=== PATIENT | female | born 1980 | race African-American/Black ===

== ENCOUNTER 2016-10-23 22:23 | Emergency (ER) | payer MEDICAID, OTHER ==
[~2016-10-23] VITALS: Ht 175.3 cm; Wt 77.1 kg
[~2016-10-23 22:23] MED LIST: ACETAMINOPHEN-1 EAC1 ORAL; AZITHROMYCIN250 MG ORAL; CELEXA20 MG PO; CLARITHROMYCIN500 MG PO; COLACE100 MG ORAL; CYCLOBENZAPRINE10 MG ORAL; FLAGYL500 MG ORAL; GABAPENTIN100 MG ORAL; IMODIUM2 MG ORAL; MILK OF MA400 MG/51 ORAL; MIRALAX17 G2 ORAL; OMEPRAZOLE40 M1 ORAL; PRILOSEC20 MG ORAL; RANITIDINE HCL150 MG ORAL; TRAMADOL HCL50 MG ORAL; TYLENOL EXTRA500 MG ORAL; ZOFRAN ODT4 MG ORAL; ZOFRAN4 M1 ORAL; ZOFRAN4 MG ORAL
[2016-10-23 23:00] VITALS: BP 101/64
[2016-10-24] MEDS ORDERED: IBUPROFEN600 MG ORAL (00:27)
[2016-10-24] MEDS ORDERED: TRAMADOL HCL50 MG ORAL (00:27)
[2016-10-24] MEDS ORDERED: ROBAXIN500 MG PO (00:27)
[2016-10-24 01:00] VITALS: BP 101/64
[2016-10-24 01:30] VITALS: BP 109/66
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
--- NOTE | 2016-10-24 11:40 | Diagnostic Imaging Report ---
Indication: Neck Pain Findings: 3 views of the cervical spine were obtained. There is narrowing of the C6-7 disc with mild endplate spurring. Alignment is normal. There is no soft tissue swelling. No fracture seen. Impression: No acute findings
--- NOTE | 2016-10-24 15:47 | Diagnostic Imaging Report ---
Indication: Back pain Comparison: None Findings: 3 views of the lumbar spine were obtained. No acute fracture or malalignment is identified. Vertebral body heights and disk spaces are well maintained. Posterior elements are unremarkable. Impression: No acute findings.
== END 2016-10-24 01:30 | disposition home or self-care (01) ==
LOC: EMR 23:25
DX: S13.4XXA Sprain of ligaments of cervical spine, initial encounter (principal); S39.012A Strain of muscle, fascia and tendon of lower back, initial encounter; V43.52XA Car driver injured in collision with other type car in traffic accident, initial encounter; Y92.411 Interstate highway as the place of occurrence of the external cause; Z88.0 Allergy status to penicillin; Z88.6 Allergy status to analgesic agent
CPT/HCPCS: 72020; 72050; 99284

== ENCOUNTER 2017-12-17 12:09 | Emergency (ER) | payer MEDICAID ==
[~2017-12-17] VITALS: Ht 170.2 cm; Wt 88.5 kg
[~2017-12-17 12:09] MED LIST changes: +IBUPROFEN600 MG ORAL; +ROBAXIN500 MG PO
[2017-12-17 12:24] VITALS: BP 126/87
[2017-12-17 13:12] LABS: APPEARANCE,URINE SLIGHTLY CLOUDY; BILIRUBIN, URINE NEGATIVE (NEGATIVE); GLUCOSE, URINE (UA) NEGATIVE (NEGATIVE); KETONES,URINE 1+ (NEGATIVE); LEUKOCYTE ESTERASE ,URINE NEGATIVE (NEGATIVE); NITRITE,URINE NEGATIVE (NEGATIVE); PH,URINE 6.5 (4.5-8.0); PROTEIN,URINE NEGATIVE (NEGATIVE); UROBILINOGEN,URINE NORMAL MG/DL (0.0-1.0)
[2017-12-17 13:13] LABS: COLOR,URINE YELLOW
--- NOTE | 2017-12-17 13:14 | Diagnostic Imaging Report ---
Indication: Shortness of breath Technique: One view of the chest Comparison: 12/27/2012 Findings: Lungs and pleural spaces are clear. Heart size is normal. No significant interim change Impression: No acute process
[2017-12-17] MEDS ORDERED: NORCO 5-325 TA1 EACH ORAL (13:15)
[2017-12-17] MEDS ORDERED: SOMA350 MG PO (13:15)
[2017-12-17 13:16] LABS: BASOPHILS % (AUTO) 1.7 % (0.0-2.0); EOSINOPHILS % (AUTO) 2.9 % (0.0-3.0); HEMATOCRIT 37.8 % (37.0-47.0); LYMPHOCYTES % (AUTO) 40.1 % (20.0-45.0); MEAN CORPUSCULAR VOLUME 83 FL (80-99); MONOCYTES % (AUTO) 7.8 % (1.0-10.0); NEUTROPHILS % (AUTO) 47.4 % (45.0-75.0); PLATELET COUNT 263 K/UL (150-450); RED BLOOD COUNT 4.52 M/UL (4.20-5.40); RED CELL DISTRIBUTION WIDTH 13.4 % (11.6-14.8)
[2017-12-17 13:27] LABS: ANION GAP 7 mmol/L (5-15); BLOOD UREA NITROGEN 10 mg/dL (7-18); CALCIUM 9.4 MG/DL (8.5-10.1); CARBON DIOXIDE 27 MMOL/L (21-32); CHLORIDE 106 MMOL/L (98-107); CREATININE 0.9 MG/DL (0.55-1.30); POTASSIUM 4.2 MMOL/L (3.5-5.1); SODIUM 140 MMOL/L (136-145)
[2017-12-17 13:42] LABS: ALANINE AMINOTRANSFERASE 26 U/L (12-78); ALBUMIN 3.6 G/DL (3.4-5.0); ALBUMIN/GLOBULIN RATIO 0.9 (1.0-2.7); ALKALINE PHOSPHATASE 67 U/L (46-116); ASPARTATE AMINO TRANSFERASE 14 U/L (15-37); BILIRUBIN,TOTAL 0.3 MG/DL (0.2-1.0); CKMB < 0.5 NG/ML (0.0-3.6); CREATINE KINASE 61 U/L (26-308)
[2017-12-17 14:22] VITALS: BP 115/70
[2017-12-17 14:23] VITALS: BP 115/70
--- NOTE | 2017-12-17 15:08 | Emergency Room Report ---
History of Present Illness General Chief Complaint: General Complaint Source: Patient Present Illness HPI 37-year-old female presents ED for evaluation. States that for the last few days she's been experiencing dizziness and tingling sensation in her left arm. Denies any weakness to the arm. Denies any chest pain or shortness of breath. States that she has history of slipped disc in her neck. Denies any headache. Denies any nausea or vomiting. No other aggravating relieving factors. Denies any other associated symptoms Allergies: Coded Allergies: PENICILLINS (Verified Allergy, Mild, cannot swallow, 12/26/12) ASPIRIN (Unverified Allergy, Unknown, 04/23/14) Patient History Past Medical History: ulcer, migraines Past Surgical History: none Pertinent Family History: none Social History: Denies: smoking, alcohol use, drug use Now: No Immunizations: UTD Reviewed Nursing Documentation: PMH: Agreed; PSxH: Agreed Nursing Documentation-PMH Hx Gastrointestinal Problems: Yes - peptic ulcers over 20 in stomach per pt Review of Systems All Other Systems: negative except mentioned in HPI Physical Exam Vital Signs Date Time Temp Pulse Resp B/P (MAP) Pulse Ox O2 Delivery O2 Flow Rate FiO2 12/17/17 12:15 98.0 76 16 126/87 98 Room Air 98.1 Sp02 EP Interpretation: reviewed, normal General Appearance: no apparent distress, alert, GCS 15, non-toxic Head: normocephalic, atraumatic Eyes: bilateral eye normal inspection, bilateral eye PERRL ENT: hearing grossly normal, normal pharynx, no angioedema, normal voice Neck: full range of motion, supple/symm/no masses Respiratory: chest non-tender, lungs clear, normal breath sounds, speaking full sentences Cardiovascular #1: regular rate, rhythm, no edema Cardiovascular #2: 2+ carotid (R), 2+ carotid (L), 2+ radial (R), 2+ radial (L) , 2+ dorsalis pedis (R), 2+ dorsalis pedis (L) Gastrointestinal: normal bowel sounds, non tender, soft, non-distended, no guarding, no rebound Rectal: deferred Genitourinary: normal inspection, no CVA tenderness Musculoskeletal: back normal, gait/station normal, normal range of motion, non- tender Neurologic: alert, oriented x3, responsive, palm and back forger III-XII nml as tested, motor strength/tone normal, sensory intact, speech normal Psychiatric: judgement/insight normal, memory normal, mood/affect normal, no suicidal/homicidal ideation Reflexes: 3+ bicep (R), 3+ bicep (L), 3+ tricep (R), 3+ tricep (L), 3+ knee (R) , 3+ knee (L) Skin: normal color, no rash, warm/dry, well hydrated Lymphatic: no adenopathy Medical Decision Making Diagnostic Impression: Primary Impression: Numbness of upper extremity Additional Impression: Dizziness ER Course Hospital Course 37-year-old female presents with tingling sensation in left arm. Dizziness. Differential diagnoses include: Rib fracture, [place]/unstable angina, contusion, muscle strain Clinical course Patient placed on stretcher. After initial history and physical I ordered labs , EKG, chest x-ray. labs reviewed- all electrolytes normal, troponins negative, no leukocytosis, hemoglobin/hematocrit stable, UA negative EKG - NSR, no acute ischemic chainges interpreted by me Chest x-ray-no cardiomegaly, no rib fracture, no pneumothorax, no acute process Discussed findings with patient. Patient has no focal neurological deficits. Cranial nerves II through XII grossly intact. 5 out of 5 motor strength in the upper extremity. Given lack of cardiac risk factors I am not suspicious for stroke or ACS i do not believe CT imaging indicated at this time Given history of neck injury was slipped disc and believe symptoms are likely related to cervical radiculopathy. Safe for discharge with close outpatient follow-up. patient agrees with pain I. I feel this is a highly complex case requiring extensive working including EKG/Rhythm strip, Xray/CT/US, Blood/urine lab work, repeat exams while in ED, and administration of strong opiates/narcotics for pain control, admission to hospital or close patient follow up. Diagnosis - numbness of upper extremity, dizziness Stable and discharged to home. Instructed to followup with PMD. Return to ED if symptoms recur or worsen Labs Test 12/17/17 12:45 White Blood Count 5.0 K/UL (4.8-10.8) Red Blood Count 4.52 M/UL (4.20-5.40) Hemoglobin 12.0 G/DL (12.0-16.0) Hematocrit 37.8 % (37.0-47.0) Mean Corpuscular Volume 83 FL (80-99) Mean Corpuscular Hemoglobin 26.6 PG (27.0-31.0) Mean Corpuscular Hemoglobin Concent 31.8 G/DL (32.0-36.0) Red Cell Distribution Width 13.4 % (11.6-14.8) Platelet Count 263 K/UL (150-450) Mean Platelet Volume 7.2 FL (6.5-10.1) Neutrophils (%) (Auto) 47.4 % (45.0-75.0) Lymphocytes (%) (Auto) 40.1 % (20.0-45.0) Monocytes (%) (Auto) 7.8 % (1.0-10.0) Eosinophils (%) (Auto) 2.9 % (0.0-3.0) Basophils (%) (Auto) 1.7 % (0.0-2.0) Urine Color Yellow Urine Appearance Slightly cloudy Urine pH 6.5 (4.5-8.0) Urine Specific [place] 1.015 (1.005-1.035) Urine Protein Negative (NEGATIVE) Urine Glucose (UA) Negative (NEGATIVE) Urine Ketones 1+ (NEGATIVE) Urine Blood 1+ (NEGATIVE) Urine Nitrite Negative (NEGATIVE) Urine Bilirubin Negative (NEGATIVE) Urine Urobilinogen Normal MG/DL (0.0-1.0) Urine Leukocyte Esterase Negative (NEGATIVE) Urine RBC 2-4 /HPF (0 - 2) Urine WBC 0-2 /HPF (0 - 2) Urine Squamous Epithelial Cells Many /LPF (NONE/OCC) Urine Bacteria Few /HPF (NONE) Urine HCG, Qualitative Negative (NEGATIVE) Sodium Level 140 MMOL/L (136-145) Potassium Level 4.2 MMOL/L (3.5-5.1) Chloride Level 106 MMOL/L (98-107) Carbon Dioxide Level 27 MMOL/L (21-32) Anion Gap 7 mmol/L (5-15) Blood Urea Nitrogen 10 mg/dL (7-18) Creatinine 0.9 MG/DL (0.55-1.30) Estimat Glomerular Filtration Rate > 60 mL/min (>60) Glucose Level 87 MG/DL (74-106) Calcium Level 9.4 MG/DL (8.5-10.1) Total Bilirubin 0.3 MG/DL (0.2-1.0) Aspartate Amino Transf (AST/SGOT) 14 U/L (15-37) Alanine Aminotransferase (ALT/SGPT) 26 U/L (12-78) Alkaline Phosphatase 67 U/L (46-116) Total Creatine Kinase 61 U/L (26-308) Creatine Kinase MB < 0.5 NG/ML (0.0-3.6) Creatine Kinase MB Relative Index 0.8 Troponin I 0.017 ng/mL (0.000-0.056) Total Protein 7.4 G/DL (6.4-8.2) Albumin 3.6 G/DL (3.4-5.0) Globulin 3.8 g/dL Albumin/Globulin Ratio 0.9 (1.0-2.7) EKG Diagnostic Results Rate: normal Rhythm: NSR ST Segments: no acute changes ASA given to the pt in ED: No Rhythm Strip Diag. Results EP Interpretation: yes Rhythm: NSR, no PVC's, no ectopy Chest X-Ray Diagnostic Results Chest X-Ray Diagnostic Results : Chest X-Ray Ordered: Yes # of Views/Limited/Complete: 1 View Indication: Chest Pain EP Interpretation: Yes Interpretation: no consolidation, no effusion, no pneumothorax, no acute cardiopulmonary disease Impression: No acute disease Electronically Signed by: Electronically signed by Elias King MD Last Vital Signs Date Time Temp Pulse Resp B/P (MAP) Pulse Ox O2 Delivery O2 Flow Rate FiO2 12/17/17 14:23 98.1 73 16 115/70 98 Room Air 98.1 Status: improved Disposition: HOME, SELF-CARE Condition: Stable Patient Instructions: Cervical Radiculopathy, [id number] Additional Instructions: see your PMD as outpatient. return to ED if you develop weakness in the arm, slurred speech, chest pain. Elias King MD Dec 17, 2017 15:08
--- NOTE | 2017-12-19 15:33 | Cardiology Report ---
APPROVED REPORT EKG Measurement Heart [id number] Normal sinus rhythm Normal ECG
== END 2017-12-17 14:25 | disposition home or self-care (01) ==
LOC: EMR 12:40
DX: R20.0 Anesthesia of skin (principal); R42 Dizziness and giddiness; Z88.0 Allergy status to penicillin; Z88.6 Allergy status to analgesic agent
CPT/HCPCS: 36415; 71045; 80053; 81003; 81025; 82550; 82553; 84484; 85025; 93005; 96360; 99284

== ENCOUNTER 2018-06-04 08:41 | Emergency (ER) | payer MEDICAID ==
[~2018-06-04] VITALS: Ht 172.7 cm; Wt 81.6 kg
[~2018-06-04 08:41] MED LIST changes: +NORCO 5-325 TA1 EACH ORAL; +SOMA350 MG PO
[2018-06-04 08:49] VITALS: BP 111/84
--- NOTE | 2018-06-04 09:14 | NUR ---
ED Nurse Note: Patient presents to ER due to flu-like symtoms. Reports decreased cough, but c/o chest/nasal congestions. Reports no fever, chills or rash. Denies N/V or D. Patient able to swallow water/eat food without problem. No facial grimacing or guarding noted.
[2018-06-04] MEDS ORDERED: CLARITHROMYCIN250 MG PO (09:15)
[2018-06-04] MEDS ORDERED: PROMETHAZI6.25 MG/1 ORAL (09:15)
--- NOTE | 2018-06-04 09:20 | Emergency Room Report ---
History of Present Illness General Chief Complaint: Upper Respiratory Illness Source: Patient Present Illness HPI Patient presents with reports of nasal congestion Sinus pressure mild headache Patient reports his symptoms initiated 2 weeks ago she felt that she might be getting better however again has started with the symptoms Also reports mild cough Denies any chest pain however she did have diarrhea Denies any back or flank pain denies any neck pain or photophobia Denies any fevers or rash Allergies: Coded Allergies: PENICILLINS (Verified Allergy, Mild, cannot swallow, 12/26/12) ASPIRIN (Unverified Allergy, Unknown, 04/23/14) Patient History Past Medical History: see triage record Pertinent Family History: none Last Menstrual Period: 1 week Now: No Reviewed Nursing Documentation: PMH: Agreed; PSxH: Agreed Nursing Documentation-PMH Past Medical History: No History, Except For Hx Gastrointestinal Problems: Yes - peptic ulcers Review of Systems All Other Systems: negative except mentioned in HPI Physical Exam Vital Signs Date Time Temp Pulse Resp B/P (MAP) Pulse Ox O2 Delivery O2 Flow Rate FiO2 06/04/18 08:49 98.4 20 111/84 97 Room Air 06/04/18 08:49 74 Sp02 EP Interpretation: reviewed, normal General Appearance: well appearing, no apparent distress Head: normocephalic, atraumatic Eyes: bilateral eye PERRL, bilateral eye EOMI ENT: hearing grossly normal, TMs + canals normal, uvula midline, pharyngeal erythema, other - Increased discomfort reproducible maxillary sinus bilaterally Neck: full range of motion, supple, no meningismus, no bony tend Respiratory: lungs clear, normal breath sounds, no rhonchi, no respiratory distress, no retraction, no accessory muscle use Cardiovascular #1: normal peripheral pulses, regular rate, rhythm, no edema, no gallop, no JVD, no murmur Gastrointestinal: normal bowel sounds, non tender, soft, no mass, no organomegaly, non-distended, no guarding, no hernia, no pulsatile mass, no rebound Genitourinary: no CVA tenderness Musculoskeletal: normal inspection Neurologic: oriented x3, responsive, laminator printed circuit boards III-XII nml as tested, motor strength/ tone normal, sensory intact Psychiatric: mood/affect normal Skin: normal color, no rash, warm/dry, palpation normal Lymphatic: normal inspection, no adenopathy Medical Decision Making Diagnostic Impression: Primary Impression: sinusitis, complex ER Course Patient has symptoms of sinusitis ongoing for the past 2 weeks Has failed outpatient trial Given the duration of her symptoms will require antibiotic coverage This meets criteria for antibiotic coverage in sinusitis given the complexity Patient otherwise does not appear septic or toxic and is stable for close outpatient follow-up Last Vital Signs Date Time Temp Pulse Resp B/P (MAP) Pulse Ox O2 Delivery O2 Flow Rate FiO2 06/04/18 09:12 72 20 Room Air 06/04/18 08:49 98.4 111/84 97 Status: unchanged Disposition: HOME, SELF-CARE Condition: Stable Scripts Promethazine Hcl (PROMETHAZINE HCL*) 6.25 Mg/5 Ml Syrup 5 ML ORAL QHS for 5 Days, #120 ML 0 Refills Prov: Kodak Heart DO 06/04/18 Clarithromycin (CLARITHROMYCIN) 250 Mg Tablet 500 MG PO BID for 7 Days, TAB Prov: Kodak Heart DO 06/04/18 Patient Instructions: Sinusitis, Adult, [id number] Additional Instructions: Patient is provided with the discharge instructions notified to follow up with primary doctor in the next 2-3 days otherwise return to the er with any worsening symptoms. Please note that this report is being documented using [employer] technology. This can lead to erroneous entry secondary to incorrect interpretation by the dictating instrument. Kodak Heart DO Jun 04, 2018 09:20
[2018-06-04 09:24] VITALS: BP 111/78
--- NOTE | 2018-06-04 09:26 | NUR ---
ED Nurse Note: Patient is being discharged from medical care. D/C instructions and prescriptions given to patient. All questions were answered. Patient ambulated out with steady gait.
== END 2018-06-04 11:44 | disposition home or self-care (01) ==
LOC: EMR 09:15
DX: J32.9 Chronic sinusitis, unspecified (principal); Z88.6 Allergy status to analgesic agent; Z88.0 Allergy status to penicillin
CPT/HCPCS: 99283

== ENCOUNTER → 2019-03-11 | Emergency (ER) | payer MEDICAID ==
[~2019-03-11] VITALS: Ht 172.7 cm; Wt 77.1 kg
[~2019-03-11] MED LIST changes: +CLARITHROMYCIN250 MG PO; +PROMETHAZI6.25 MG/1 ORAL; +ZYRTEC-D TABLE1 EACH ORAL
--- NOTE | 2019-03-11 17:38 | NUR ---
ED Nurse Note: Pt ambulated to ED with c/o Sore throat. Pt is calm and cooperative, AOX4. PA on bedside.
[2019-03-11 17:40] VITALS: BP 115/80
--- NOTE | 2019-03-11 17:52 | Emergency Room Report ---
History of Present Illness General Chief Complaint: Sore Throat Source: Patient Present Illness HPI 38 YO Female presents to the ED c/o 08/[address] with swollen feeling in the back of her throat. Patient denies swelling of the lips or tongue she denies wheezing or difficulty breathing. Patient denies fevers or chills she reports intermittent swollen tender lymph nodes in the neck area x3 days. Patient reports upon swallowing she has some discomfort. Patient denies cough, headache, neck pain or stiffness. Patient denies recent travel or ill contacts. No other aggravating or relieving factors at this time. Allergies: Coded Allergies: PENICILLINS (Verified Allergy, Mild, cannot swallow, 12/26/12) ASPIRIN (Unverified Allergy, Unknown, 04/23/14) Patient History Past Medical History: see triage record Past Surgical History: none Last Menstrual Period: 02/28/19 Now: No Reviewed Nursing Documentation: PMH: Agreed; PSxH: Agreed Nursing Documentation-PMH Past Medical History: No History, Except For Hx Gastrointestinal Problems: Yes - peptic ulcers Review of Systems All Other Systems: negative except mentioned in HPI Physical Exam Vital Signs Date Time Temp Pulse Resp B/P (MAP) Pulse Ox O2 Delivery O2 Flow Rate FiO2 03/11/19 17:37 98.6 100 15 127/85 (99) 95 Room Air Sp02 EP Interpretation: reviewed, normal General Appearance: no apparent distress, alert, GCS 15, non-toxic Head: normocephalic, atraumatic Eyes: bilateral eye normal inspection, bilateral eye PERRL ENT: hearing grossly normal, normal pharynx, no angioedema, normal voice, TMs + canals normal, uvula midline, moist mucus membranes, pharyngeal erythema, other - no exudates Neck: full range of motion, no meningismus, no bony tend Respiratory: chest non-tender, lungs clear, normal breath sounds, no respiratory distress, no accessory muscle use, speaking full sentences Cardiovascular #1: regular rate, rhythm, normal capillary refill Musculoskeletal: normal range of motion, gait/station normal, non-tender Neurologic: alert, motor strength/tone normal, oriented x3, sensory intact, responsive, speech normal Psychiatric: judgement/insight normal Skin: no rash, normal color, normal inspection Lymphatic: no adenopathy Medical Decision Making PA Attestation Dr. Laguerre Is my supervising Physician whom patient management has been discussed with. Diagnostic Impression: Primary Impression: Pharyngitis Qualified Codes: J02.9 - Acute pharyngitis, unspecified Additional Impression: Post-nasal drainage ER Course 38 YO Female presents to the ED c/o 6/[address] with swollen feeling in the back of her throat. Patient denies swelling of the lips or tongue she denies wheezing or difficulty breathing. Patient denies fevers or chills she reports intermittent swollen tender lymph nodes in the neck area x3 days. Patient reports upon swallowing she has some discomfort. Patient denies cough, headache, neck pain or stiffness. Patient denies recent travel or ill contacts. No other aggravating or relieving factors at this time. Ddx considered but are not limited to: pharyngitis, strep, SALES OPERATIONS CONSULTANT, ludwigs angina, URI, epiglottitis Vital signs: are WNL, pt. is afebrile H&PE are most consistent with: PND pharyngitis pt. does not meet CENTOR criteria and this is not presumed to be strep. ORDERS: None required at this time as the diagnosis is clinical ED INTERVENTIONS: none required at this time. DISCHARGE: At this time pt. is stable for d/c to home. Will provide printed patient care instructions, and any necessary prescriptions. Care plan and follow up instructions have been discussed with the patient prior to discharge. Last Vital Signs Date Time Temp Pulse Resp B/P (MAP) Pulse Ox O2 Delivery O2 Flow Rate FiO2 03/11/19 17:37 98.6 100 15 127/85 (99) 95 Room Air Status: improved Disposition: HOME, SELF-CARE Condition: Stable Referrals: Autumn Eldridge [facility] Patient Instructions: Sore Throat Additional Instructions: Take medications as directed. Follow up with a Primary Care Provider in 3-5 days, even if your symptoms have resolved. --Please review list of primary care clinics, if you do not already have a primary care provider Return sooner to ED if new symptoms occur, or current symptoms become worse. - Please note that this Emergency Department Report was dictated using [employer] processing technician technology software, occasionally this can lead to erroneous entry secondary to interpretation by the dictation equipment. Nica Arauz Mar 11, 2019 17:52
[2019-03-11 18:14] VITALS: BP 120/82
--- NOTE | 2019-03-11 18:14 | NUR ---
ER DISCHARGE NOTE: Patient is cleared to be discharged per ERMD, pt is aox4, on room air, with stable vital signs. pt was given dc and prescription instructions, pt was able to verbalize understanding, pt id band removed. pt is able to ambulate with steady gait. pt took all belongings.
== END | disposition home or self-care (01) ==
LOC: EMR 18:02
DX: J02.9 Acute pharyngitis, unspecified (principal); R09.82 Postnasal drip; Z87.11 Personal history of peptic ulcer disease; Z88.0 Allergy status to penicillin; Z88.6 Allergy status to analgesic agent
CPT/HCPCS: 99282